=== PATIENT | female | born 2000 ===

== ENCOUNTER → 2022-06-22 15:20 | Observation (INO) | END | disposition home or self-care (01) | LOC: 1NENULAB | PROVIDERS: ADMIT Obstetrics & Gynecology; ATTEND Obstetrics & Gynecology ==

== ENCOUNTER 2022-07-17 04:15 | Inpatient (IN) ==
[2022-07-17] MEDS ORDERED: *HR* Nalbuphine 10 MG/ML AMPUL IV PRN (04:27)
[2022-07-17] MEDS ORDERED: Metoclopramide 10 MG/2 ML VIAL IVP PRN (04:27)
[2022-07-17] MEDS ORDERED: Famotidine 20 MG/2 ML VIAL IVP PRN (04:27)
[2022-07-17] MEDS ORDERED: Naloxone 0.4 MG/ML INJ IVP PRN (04:27)
[2022-07-17 05:08] LABS: Basophils % 0.4 %; Eosinophils # 0.1 K/mcL (0.0-0.6); Eosinophils % 1.1 %; Hematocrit 37.6 % (35.3-44.9); Lymphocytes # 2.2 K/mcL (0.6-4.6); Lymphocytes % 21.3 %; Mean Corpuscular HGB Conc 34.6 g/dL (31.6-35.5); Mean Corpuscular Hemoglobin 31.6 pg (28.0-33.3); Mean Corpuscular Volume 91.5 fL (83.0-100.0); Mean Platelet Volume 10.6 fL (9.4-12.4); Monocytes % 9.3 %; Neutrophils # 6.9 K/mcL (1.6-8.9); Platelet Count 248 K/mcL (140-400); Red Blood Count 4.11 M/mcL (3.82-4.97); Red Cell Distribution Width 13.1 % (11.5-14.5); Segmented Neutrophils % 66.9 %; White Blood Count 10.3 K/mcL (4.3-11.1)
[2022-07-17 05:17] LABS: Amphetamine Screen,Urine Negative ng/mL (Cutoff=1000); Barbiturate Screen,Urine Negative ng/mL (Cutoff=200); Benzodiazepines Screen,Urine Negative ng/mL (Cutoff=200); Cannabinoid Screen,Urine Negative ng/mL (Cutoff = 50); Cocaine Screen,Urine Negative ng/mL (Cutoff= 300); Opiate Screen,Urine Negative ng/mL (Cutoff=300); Phencyclidine Screen,Urine Negative ng/mL (Cutoff=25)
[2022-07-17] MEDS ORDERED: Oxytocin 30 UNIT/503 ML BAG IVC SCH (05:45)
[2022-07-17] MEDS: Ringers Solution, Lactated 1,000 ML IVC SCH ×2 (06:11→13:58)
[2022-07-17] MEDS ORDERED: miSOPROStoL 25 MCG TABLET PO SCH (08:00)
[2022-07-17] MEDS ORDERED: EPHEDrine sulfate 50 MG/10 ML VIAL IVP PRN (08:07)
[2022-07-17] MEDS ORDERED: *HR* FentaNYL (PF) 100 MCG/2 ML VIAL EP ONE (08:07)
[2022-07-17] MEDS ORDERED: Ropivacaine/PF 0.2% 20 ML VIAL EP ONE (08:07)
[2022-07-17] MEDS ORDERED: Epidural Premix (fent/bupiv) 110 ML EP SCH (08:15)
[2022-07-17] MEDS ORDERED: Ondansetron 4 MG/2 ML VIAL IVP PRN (13:49)
[2022-07-17] MEDS ORDERED: *HR* FentaNYL (PF) 100 MCG/2 ML VIAL ONE (16:44)
[2022-07-17] MEDS ORDERED: Ropivacaine/PF 0.2% 20 ML VIAL ONE (16:44)
[2022-07-17] MEDS ORDERED: 0.9 % Sodium Chloride 1,000 ML ONE (17:44)
[2022-07-18] MEDS ORDERED: Measles/Mumps/Rubella Vacc 0.5 ML VIAL SQ PRN (01:45)
[2022-07-18] MEDS ORDERED: Ondansetron ODT 4 MG TAB.RAPDIS SL PRN (01:45)
[2022-07-18] MEDS ORDERED: Benzocaine/Menthol 56 GM AEROSOL SPRAY TP PRN (01:45)
[2022-07-18] MEDS ORDERED: Rho Immune Globulin 1,500 UNIT SYRINGE IM PRN (01:45)
[2022-07-18] MEDS ORDERED: Oxytocin 30 UNIT/503 ML BAG IVC SCH (01:45)
[2022-07-18] MEDS ORDERED: Lanolin 7 G OINT...G. TP PRN (01:45)
[2022-07-18] MEDS: Ibuprofen 600 MG TABLET PO SCH ×4 (02:07→23:52)
[2022-07-18] MEDS: Acetaminophen 325 MG TABLET PO SCH ×4 (04:29→23:52)
[2022-07-18 05:07] LABS: Basophils % 0.1 %; Eosinophils % 0.2 %; Hematocrit 33.8 % (35.3-44.9); Immature Granulocytes % 0.6 % (0-4); Lymphocytes % 10.4 %; Mean Corpuscular HGB Conc 33.7 g/dL (31.6-35.5); Mean Corpuscular Volume 91.8 fL (83.0-100.0); Mean Platelet Volume 10.6 fL (9.4-12.4); Monocytes # 1.4 K/mcL (0.0-1.3); Monocytes % 7.3 %; Platelet Count 215 K/mcL (140-400); Red Blood Count 3.68 M/mcL (3.82-4.97); Red Cell Distribution Width 13.1 % (11.5-14.5); Segmented Neutrophils % 81.4 %
[2022-07-18 05:08] LABS: Hemoglobin 11.4 g/dL (11.5-15.4); Neutrophils # 15.8 K/mcL (1.6-8.9); White Blood Count 19.4 K/mcL (4.3-11.1)
[2022-07-18] MEDS: Prenatal Vit/FA 1 EACH TABLET PO SCH (10:43)
[2022-07-18 23:38] VITALS: TEMP 97.9
[2022-07-19 05:21] LABS: Basophils % 0.3 %; Eosinophils # 0.2 K/mcL (0.0-0.6); Eosinophils % 1.6 %; Hematocrit 30.3 % (35.3-44.9); Hemoglobin 10.2 g/dL (11.5-15.4); Lymphocytes # 2.7 K/mcL (0.6-4.6); Lymphocytes % 20.6 %; Mean Corpuscular HGB Conc 33.7 g/dL (31.6-35.5); Mean Corpuscular Hemoglobin 31.7 pg (28.0-33.3); Mean Corpuscular Volume 94.1 fL (83.0-100.0); Mean Platelet Volume 10.1 fL (9.4-12.4); Monocytes % 7.5 %; Neutrophils # 9.2 K/mcL (1.6-8.9); Platelet Count 197 K/mcL (140-400); Red Blood Count 3.22 M/mcL (3.82-4.97); Red Cell Distribution Width 13.3 % (11.5-14.5); White Blood Count 13.3 K/mcL (4.3-11.1)
[2022-07-19 06:58] VITALS: BP 117/71; PULSE 63; O2SAT 99
[2022-07-19] MEDS: Prenatal Vit/FA 1 EACH TABLET PO SCH (09:55)
[2022-07-19] MEDS: Acetaminophen 325 MG TABLET PO SCH (09:55)
[2022-07-19] MEDS: Ibuprofen 600 MG TABLET PO SCH (09:56)
== END 2022-07-19 12:05 | disposition home or self-care (01) | DRG 806 ==
LOC: 1NENULAB 04:15 → 1NENUOBS 07-18 01:45
PROVIDERS: ADMIT Student in an Organized Health Care Education/Training Program; ATTEND Student in an Organized Health Care Education/Training Program